=== PATIENT | female | born 1960 | race Caucasian/White ===

== ENCOUNTER 2017-04-04 06:33 | Day surgery (SDC) | payer BC ==
[~2017-04-04 06:33] MED LIST: CEFAZOLIN 1 GM/D5W RTU 1 GM/50 ML RTUPB IV PRN
[2017-04-04] MEDS ORDERED: LIDOCAINE 2% INJ (20 MG/ML) 20 ML MDV ONE (07:09)
[2017-04-04] MEDS ORDERED: POLYMYXIN B SULFATE INJ 500000 UNIT VIAL ONE (07:09)
[2017-04-04] MEDS ORDERED: BUPIVACAINE HCL 0.5 % INJ/PF 30 ML SDV ONE (07:09)
[2017-04-04] MEDS ORDERED: BACITRACIN INJ 50,000 UNIT VIAL ONE (07:10)
[2017-04-04] MEDS ORDERED: SODIUM CHLORIDE IRRIG SOLUTION 0 ML ONE (07:10)
[2017-04-04] MEDS ORDERED: NORMAL SALINE INJ/PF 0.9% 10 ML SDV ONE (07:11)
[2017-04-04] MEDS ORDERED: FENTANYL CITRATE INJ/PF 100 MCG/2 ML AMPUL ONE ×2 (07:15→07:29)
[2017-04-04] MEDS ORDERED: MIDAZOLAM 2 MG/2 ML INJ ONE ×2 (07:15→07:28)
[2017-04-04] MEDS ORDERED: ONDANSETRON HCL INJ/PF 4 MG/2 ML SDV ONE (07:16)
[2017-04-04] MEDS ORDERED: DEXMEDETOMIDINE INJ 80 MCG/20 ML VIAL IV ONE (07:16)
[2017-04-04] MEDS ORDERED: LIDOCAINE 2% INJ-PF (20 MG/ML) 10 ML AMPUL ONE (07:16)
[2017-04-04] MEDS ORDERED: ACETAMINOPHEN 100 ML IV ONE (07:16)
[2017-04-04] MEDS ORDERED: KETAMINE HCL INJ 500 MG/10 ML VIAL ONE (07:16)
[2017-04-04] MEDS ORDERED: KETOROLAC TROMETHAMINE 60 MG/2 ML SDV ONE (07:16)
[2017-04-04] MEDS ORDERED: EPHEDRINE SULFATE INJ 50 MG/1 ML AMPULE ONE (07:17)
[2017-04-04] MEDS ORDERED: PROPOFOL INJ 200 MG/20 ML VIAL IV ONE (07:17)
[2017-04-04] MEDS ORDERED: DEXAMETHASONE SOD PHOS INJ 10 MG/1 ML VIAL ONE (07:17)
[2017-04-04] MEDS ORDERED: BUPIVACAINE INJ/PF LIPOSOME/PF 266 MG/20 ML SDV INJ PRN (09:07)
[2017-04-04] MEDS ORDERED: DEXAMETHASONE SOD PHOSPHATE INJ 4 MG/1 ML VIAL ONE (09:33)
--- NOTE | 2017-04-04 11:18 | SURGICARE DISCHARGE SUMMARY E ---
[facility] Discharge Summary NAME: MEE WILSON AGE: 57Y ADMITTED: 04/04/2017 DISCHARGED: 04/04/2017 SURGICAL PROCEDURES: 1. Harrison bunionectomy with internal screw fixation, right foot. 2. Luiz osteotomy of the second metatarsal with internal screw fixation, right foot. 3. Arthroplasty at the proximal interphalangeal joint, second digit, right foot. POSTOPERATIVE DIAGNOSES: 1. HALLUX ABDUCTOVALGUS, RIGHT FOOT. 2. METATARSALGIA, SECOND METATARSAL, RIGHT FOOT. 3. HAMMERTOE DEFORMITY, SECOND DIGIT, RIGHT FOOT. SURGEON: Sandy Reynoso DPM GRINDER SET UP OPERATOR INTERNAL: Amari Moss DPM HOSPITAL COURSE: The patient was admitted to [facility] [place] with a chief complaint of a painful bunion on her right foot. She was also complaining of the fact that she was having pain in her second toe whenever she wore shoes, and also have some problems with the joint associated with the second toe. The patient had undergone conservative treatments without any cessation of her symptoms, and decided to agree to have these problems surgically corrected. She underwent the above surgical procedures without any complications and was transferred to the recovery room. DISPOSITION: She was discharged with a surgical shoe, an ice pack, and postoperative instructions including no weightbearing on the surgical foot. She was then discharged from [facility], and she was given a follow-up appointment in the doctor's office in 1 week. DICTATING PHYSICIAN: SANDY REYNOSO D.P.M. [id number] PHY#: [id number] ID: [id number] JOB#: [id number] ACCT: [id number] cc:SANDY REYNOSO DPM >
--- NOTE | 2017-04-04 13:21 | RADIOLOGY REPORT (SQ) ---
EXAM DESCRIPTION: FOOT RIGHT 2 VIEWS; NO CHG FLUORO COMPLETED DATE/TIME: 04/04/2017 12:44 pm REASON FOR STUDY: RT FOOT BUNIONECTOMY/2ND OSTECTOMY M20.11 HALLUX VALGUS (ACQUIRED), RIGHT FOOT M7 7.41 METATARSALGIA, RIGHT FOOT COMPARISON: None. FLUOROSCOPY TIME: 14 seconds 2 images saved to PACS. TECHNIQUE: Intra-operative images acquired during surgical procedure to evaluate progress. NUMBER OF IMAGES: 2 LIMITATIONS: None. FINDINGS: Orthopedic screw overlies distal 1st metatarsal status post osteotomy. Orthopedic screw o verlies head of 2nd metatarsal. IMPRESSION: IMAGE(S) OBTAINED DURING PROCEDURE. COMMENT: Quality ID [id number]: Final reports for procedures using fluoroscopy that document radiation exp osure indices, or exposure time and number of fluorographic images (if radiation exposure indices are not available) Please consult full operative report of the attending physician for description of the procedure. TECHNICAL DOCUMENTATION: JOB ID: [id number] [employer]- All Rights Reserved
--- NOTE | 2017-04-05 14:40 | SURGICARE OPERATIVE REPORT E ---
[facility] NAME: MEE WILSON AGE: 57Y DATE OF SURGERY: 04/04/2017 ROOM: PREOPERATIVE DIAGNOSES: 1. Hallux abductovalgus, right foot. 2. Metatarsalgia second metatarsal, right foot. 3. Hammertoe deformity second digit, right foot. POSTOPERATIVE DIAGNOSES: 1. Hallux abductovalgus, right foot. 2. Metatarsalgia second metatarsal, right foot. 3. Hammertoe deformity second digit, right foot. SURGICAL PROCEDURES: 1. Harrison bunionectomy with internal screw fixation, right foot. 2. Luiz osteotomy with internal screw fixation second metatarsal, right foot. 3. Arthroplasty at the proximal interphalangeal joint second digit, right foot. SURGEON: SANDY GUTIERREZ DPM GLOBAL COORDINATOR: MARI RUST DPM DESCRIPTION OF PROCEDURE: Following induction IV regional local anesthesia, the right foot and leg were prepped and draped in the usual sterile manner. A pneumatic tourniquet was placed around the right ankle and inflated to 150 mmHg after exsanguination of limb via Esmarch bandage. The following surgical procedures were then performed. 1. Harrison bunionectomy with internal screw fixation, right foot: Attention was directed to the dorsal aspect of the first metatarsophalangeal joint of the right foot where an approximately 4 cm dorsal linear incision was made. The incision was deep and via sharp dissection. All bleeders were clamped and bovied as necessary for the purposes of hemostasis. The capsular incision was made in the same manner as the original skin incision and made medial to the extensor hallucis longus tendon. The capsule was reflected medial and laterally from the bone. Attention was directed to the first interspace where utilizing blunt dissection. The transverse adductor tendon was identified and it was sharply incised. Attention was directed to the hypertrophied medial aspect of the first metatarsal head where utilizing a Gazemetrix sagittal saw, the hypertrophied head of the medial aspect of the first metatarsal was osteomized parallel to the long axis of the bone and removed in toto from the wound. An Harrison type osteotomy was then performed with the apex being distal. It was done at the medial aspect of the first metatarsal head. The apex was distal. The wounds were approximated 60 degrees plantar and dorsal. With through and through cuts, the capsular fragment was then distracted, shifted approximately 6 mm laterally on the metatarsal, and tilted and impacted on the bone. The osteotomy was temporarily fixated utilizing a 0.45 guidewire. A reamer measure was then threaded down the guidewire and a hole was reamed to accept the head of the screw and it was noted that an 18 mm 3.0 cannulated screw would be needed. A 2.0 cannulated drill bit was then threaded down the guidewire and the distal aspect of the osteotomy was then drilled. The 18 mm 3.0 cannulated screw was then threaded down the guidewire and tightened down until the osteotomy was stably fixated. X-ray was taken. It was noted that the screw was in good position, the osteotomy closed, and that the first metatarsophalangeal joint was found in a more anatomic correct position. The guidewire was then removed. The redundant bone on the medial aspect of the first metatarsal head was then osteotomized parallel to the long axis of the bone utilizing a Gazemetrix sagittal saw. Medial aspect of the first metatarsal head was then rasped smooth utilizing a Gazemetrix crosscut rasp. The area was then flushed with copious amounts of a saline solution. Bone wax was then applied to the medial aspect of the first metatarsal head. The capsule was then coapted and maintained utilizing simple interrupted sutures of 3-0 Vicryl. The extensor hallucis longus tendon was then lengthened via a Z-plasty lengthening and was sutured utilizing a running, locking suture of 3-0 FiberWire. The tendon was then tacked medially utilizing simple interrupted sutures of 4-0 Vicryl. The subcutaneous tissue was then closed utilizing simple interrupted sutures of 4-0 Vicryl. The incision was then injected with Exparel. The skin was then coapted and maintained utilizing horizontal mattress sutures of 5-0 nylon. 2. Luiz osteotomy of the second metatarsal with internal screw fixation: Attention was directed to the dorsal aspect of the second metatarsophalangeal joint where approximately a 2 cm curvilinear incision was made over the second metatarsophalangeal joint. The incision was deep and via sharp dissection. All bleeders were clamped and bovied as necessary for the purposes of hemostasis. A dorsal linear capsule incision was made medial to the extensor digitorum longus tendon. The capsule was then freed from the soft tissue attachments dorsally. The Luiz osteotomy was then performed at the second metatarsal head. The osteotomy was angled from distal dorsal to plantar proximal. This then allowed the metatarsal head to shift plantarly and proximally. The site was then fixated utilizing a 12 mm QuickFix screw. The redundant bone on the dorsal aspect of the second metatarsal was removed utilizing a rongeur. The area was then flushed with copious amounts of saline solution. An x-ray was taken. It was noted that the osteotomy of the second metatarsal was closed and that it's length was more in line with the third metatarsal. The osteotomy was stably fixated. The capsule was then coapted and maintained utilizing simple interrupted sutures subcutaneous. The extensor digitorum longus was then lengthened via a Z-plasty lengthening and sutured with 3-0 FiberWire. The subcutaneous tissue was then closed utilizing simple interrupted sutures of 4-0 Vicryl and the skin was coapted and maintained utilizing horizontal mattress sutures of 5-0 nylon. 3. Arthroplasty at the proximal interphalangeal joint second digit, right foot: Attention was directed to the dorsal aspect of the second digit right foot where an approximately 1.5 cm. dorsolinear incision was made. The incision was deep and via sharp dissection. All bleeders were clamped and bovied as necessary for the purposes of hemostasis. The extensor digitorum longus tendon was then incised transversely and reflected proximally and distally from the bone. The hypertrophied head of the proximal phalanx was osteotomized perpendicular to the long axis of the bone utilizing a Debord sagittal saw. The plantar plate was then sharply incised and removed. The flexor hallucis longus tendon was isolated, brought up plantarly, and cut as far distal as possible. The digitorum longus tendon was then split longitudinally and brought up in the medial and lateral aspects of the second digit. The tendon was then coapted and maintained at dorsal aspect of the digit of the proximal phalanx utilizing a simple interrupted suture of 3-0 FiberWire. The distal aspect of the extensor digitorum longus tendon was then sutured to the flexor digitorum longus tendon plantarly utilizing simple interrupted suture of 3-0 Vicryl. The extensor digitorum longus tendon and the distal and proximal aspect were then sutured back utilizing simple interrupted sutures of 3-0 Vicryl. The flexor digitorum longus tendon was then sutured to the dorsal aspect of the extensor digitorum longus tendon utilizing simple interrupted sutures of 3-0 FiberWire. Attention was directed to the proximal aspect of the proximal phalanx where utilizing sharp dissection the extensor kim was incised. The skin was then coapted and maintained utilizing horizontal mattress sutures of 5-0 nylon. It should be noted that the second metatarsal incision was also injected with Exparel before the skin was sutured. The foot was then cleansed utilizing alcohol foam. A dry sterile dressing was then applied consisting of Isaac silk, 4 x 4s, Conform, Kerlix, and Coban. The pneumatic tourniquet was released. It was noted that all digits were warm and viable and patient was transferred to the recovery room. DICTATING PHYSICIAN: SANDY GUTIERREZ D.P.M. [id number] PHY#: [id number] ID: [id number] JOB#: [id number] ACCT: [id number] cc:SANDY GUTIERREZ DPM > MTDD
== END 2017-04-04 11:18 | disposition home or self-care (01) ==
LOC: SC 06:33
PROVIDERS: ATTEND Podiatrist Foot Surgery
PROC: 0QSN04Z Reposition Right Metatarsal with Internal Fixation Device, Open Approach (ICD-10-PCS; 2017-04-04)
PROC: 0SRP0JZ Replacement of Right Toe Phalangeal Joint with Synthetic Substitute, Open Approach (ICD-10-PCS; 2017-04-04)
PROC: 0QBN0ZZ Excision of Right Metatarsal, Open Approach (ICD-10-PCS; principal; 2017-04-04 07:30)
DX: M20.11 Hallux valgus (acquired), right foot (principal); M77.41 Metatarsalgia, right foot; J45.909 Unspecified asthma, uncomplicated; M19.90 Unspecified osteoarthritis, unspecified site; G40.909 Epilepsy, unspecified, not intractable, without status epilepticus; G47.30 Sleep apnea, unspecified; Z87.891 Personal history of nicotine dependence
CPT/HCPCS: 73620; 28296; 28308; 28285; C1713 ×2; C1769; J2250; J3490 ×4; J0690; J1100 ×2; J1885; J3010; J2405; J2704; J0131; C9290; 01480

== ENCOUNTER 2017-11-15 20:07 | Observation (INO) | payer BC ==
[2017-11-15] MEDS ORDERED: ASPIRIN 81 MG TABLET, CHEWABLE PO ONE (20:18)
--- NOTE | 2017-11-15 20:21 | ER Document Report ---
ED General - General Stated Complaint: CHEST PAIN Time Seen by Provider: 11/15/17 20:11 Mode of Arrival: Ambulatory Information source: Patient Notes: This is a 57-year-old female with a history of childhood teeth mild seizures, history of GERD, who was usual state of health until this evening when she was walking into the kitchen and had sudden onset of palpitations. The palpitations lasted 15 minutes before she called EMS. EMS found the patient in SVT with rates approximately 220. She was given 6 mg of adenosine and converted to sinus rhythm. Patient states her symptoms are much improved. Total symptoms lasted 35 minutes. Medicines: None Allergies: Bacitracin and Neurontin. Patient denies any significant alcohol, occasionally smokes cigarettes. TRAVEL OUTSIDE OF THE [place] IN LAST 30 DAYS: No - HPI Onset: Just prior to arrival Onset/Duration: Sudden Quality of pain: Dull Severity: Mild Pain Level: 1 Associated symptoms: Shortness of breath. denies: Fever Exacerbated by: Denies Relieved by: Denies Similar symptoms previously: No Recently seen / treated by doctor: No - Related Data Allergies/Adverse Reactions: bacitracin Allergy (Verified 04/04/17 07:03) Blisters gabapentin [From Neurontin] Allergy (Verified 04/04/17 07:03) Home Medications: Current Home Medications No Home Medications 11/16/17 [History] Past Medical History - General Information source: Patient - Social History Smoking Status: Current Every Day Smoker Cigarette use (# per day): Yes - "Occasional: Chew tobacco use (# tins/day): No Frequency of alcohol use: Occasional Drug Abuse: None Lives with: Family Family History: Reviewed & Not Pertinent - Past Medical History Cardiac Medical History: Denies: Hx Heart Attack, Hx Hypertension Pulmonary Medical History: Denies: Hx Asthma Neurological Medical History: Reports: Hx Seizures - PETIT MAL/BLACK OUT, MEDS 6 -15YRS OLD NO MEDS NOW. Denies: Hx Cerebrovascular Accident GI Medical History: Reports: Hx Hiatal Hernia. Denies: Hx Hepatitis, Hx Ulcer Infectious Medical History: Denies: Hx Hepatitis Past Surgical History: Reports: Hx Appendectomy, Hx Gynecologic Surgery - partial ovary removal, Hx Hysterectomy. Denies: Hx Mastectomy, Hx Open Heart Surgery, Hx Pacemaker Review of Systems - Review of Systems Constitutional: denies: Chills, Fever EENT: No symptoms reported Cardiovascular: Palpitations Respiratory: No symptoms reported Gastrointestinal: No symptoms reported Genitourinary: No symptoms reported Female Genitourinary: No symptoms reported Musculoskeletal: No symptoms reported Skin: No symptoms reported Hematologic/Lymphatic: No symptoms reported Neurological/Psychological: No symptoms reported Physical Exam - Vital signs Vitals: Temp Pulse Resp BP Pulse Ox 98.2 F 116 H 18 107/90 H 98 11/15/17 20:11 11/15/17 20:11 11/15/17 20:11 11/15/17 20:11 11/15/17 20:11 Notes: Physical exam: GENERAL: 57-year-old female, alert and oriented 3, no acute distress HEAD: Atraumatic, normocephalic. EYES: Pupils equal round and reactive to light, extraocular movements intact, sclera anicteric, conjunctiva are normal. ENT: TMs normal, nares patent, oropharynx clear without exudates. Moist mucous membranes. NECK: Normal range of motion, supple without obvious mass or JVD. LUNGS: Breath sounds clear to auscultation bilaterally and equal. No wheezes rales or rhonchi. HEART: Regular rate and rhythm without murmurs, rubs or gallops. ABDOMEN: Soft, normoactive bowel sounds. No tenderness to palpation. No guarding, no rebound. No masses appreciated. EXTREMITIES: Normal range of motion, no pitting or edema. No clubbing or cyanosis. NEUROLOGICAL: Cranial nerves II through XII grossly intact. Normal speech, moving all extremities. PSYCH: Normal mood, normal affect. SKIN: Warm, Dry, normal turgor, no rashes or lesions noted. Course - Re-evaluation Re-evalutation: 11/16/17 03:13 I discussed case with Dr. beck who recommends continued observation. He also recommends Cardizem 30 mg every 8 hours. - Vital Signs Vital signs: Temp Pulse Resp BP Pulse Ox 98.2 F 116 H 22 H 114/76 97 11/15/17 20:11 11/15/17 20:55 11/16/17 04:01 11/16/17 04:01 11/16/17 04:01 - Laboratory Result Diagrams: 11/15/17 20:42 11/15/17 20:42 Laboratory results interpreted by me: 11/15/17 11/15/17 20:42 20:42 WBC 10.8 H Chloride 109 H Glucose 112 H Calcium 10.3 H Creatine Kinase 193 H - Diagnostic Test Radiology reviewed: Image reviewed, Reports reviewed - Chest x-ray shows no infiltrates or effusions - EKG Interpretation by Me Rate: Normal Rhythm: NSR - EKG shows normal sinus rhythm with an inverted T in lead III. Critical Care Note - Critical Care Note Total time excluding time spent on procedures (mins): 60 Discharge - Discharge Clinical Impression: SVT Condition: Stable Disposition: ADMITTED OBSERVATION Admitting Provider: Hospitalist - Dr. Brewster Unit Admitted: DAVIAN
--- NOTE | 2017-11-15 20:53 | RADIOLOGY REPORT (SQ) ---
EXAM DESCRIPTION: CHEST SINGLE VIEW COMPLETED DATE/TIME: 11/15/2017 8:44 pm REASON FOR STUDY: palpitations COMPARISON: 06/25/2008. EXAM PARAMETERS: NUMBER OF VIEWS: One view. TECHNIQUE: Single frontal radiographic view of the chest acquired. RADIATION DOSE: NA LIMITATIONS: None. FINDINGS: LUNGS AND PLEURA: No opacities, masses or pneumothorax. No pleural effusion. MEDIASTINUM AND HILAR STRUCTURES: No masses. Contour normal. HEART AND VASCULAR STRUCTURES: Heart normal in size. Normal vasculature. BONES: No acute findings. HARDWARE: None in the chest. OTHER: No other significant finding. IMPRESSION: NO ACUTE RADIOGRAPHIC FINDING IN THE CHEST. TECHNICAL DOCUMENTATION: JOB ID: [id number] [employer] All Rights Reserved
[2017-11-15 21:00] LABS: ABSOLUTE BASOPHILS # (AUTO) 0.1 10^3/uL (0.0-0.2); ABSOLUTE EOSINOPHILS # (AUTO) 0.3 10^3/uL (0.0-0.6); ABSOLUTE LYMPHOCYTES (AUTO) 2.9 10^3/uL (0.5-4.7); ABSOLUTE MONOCYTES (AUTO) 0.7 10^3/uL (0.1-1.4); ABSOLUTE NEUT (AUTO) 6.8 10^3/uL (1.7-8.2); BASOPHILS % (AUTO) 0.9 % (0-2); EOSINOPHILS % (AUTO) 3.1 % (0-6); HEMOGLOBIN 14.9 g/dL (12.0-15.5); LYMPHOCYTES % (AUTO) 26.4 % (13-45); MEAN CORPUSCULAR HEMOGLOBIN 29.3 pg (27.0-33.4); MEAN CORPUSCULAR HGB CONC 33.9 g/dL (32.0-36.0); MEAN CORPUSCULAR VOLUME 87 fl (80-97); MONOCYTES % (AUTO) 6.5 % (3-13); PLATELET COUNT 321 10^3/uL (150-450); RED BLOOD COUNT 5.09 10^6/uL (3.72-5.28); RED CELL DISTRIBUTION WIDTH 13.1 % (11.5-14.0); SEGMENTED NEUTROPHILS % (AUTO) 63.1 % (42-78); TOTAL CELLS COUNTED % (AUTO) 100 %; WHITE BLOOD COUNT 10.8 10^3/uL (4.0-10.5)
[2017-11-15 21:25] LABS: ALANINE AMINOTRANSFERASE 36 U/L (9-52); ALBUMIN 4.4 g/dL (3.5-5.0); ALKALINE PHOSPHATASE 80 U/L (38-126); ANION GAP 12 (5-19); ASPARTATE AMINO TRANSFERASE 23 U/L (14-36); BILIRUBIN,DIRECT 0.2 mg/dL (0.0-0.4); BILIRUBIN,TOTAL 0.4 mg/dL (0.2-1.3); BLOOD UREA NITROGEN 12 mg/dL (7-20); CALCIUM 10.3 mg/dL (8.4-10.2); CARBON DIOXIDE 23 mmol/L (22-30); CHLORIDE 109 mmol/L (98-107); CREATINE KINASE 193 U/L (30-135); GLUCOSE 112 mg/dL (75-110); POTASSIUM 4.4 mmol/L (3.6-5.0); TOTAL PROTEIN 6.9 g/dL (6.3-8.2)
[2017-11-15 21:35] LABS: CREATINE KINASE MB 0.79 ng/mL (<4.55)
[2017-11-15 21:38] LABS: TROPONIN I 0.038 ng/mL
[2017-11-15 21:39] LABS: FREE T4 (FREE THYROXINE) 1.03 ng/dL (0.78-2.19)
[2017-11-15 21:53] LABS: THYROID STIMULATING HORMONE 1.31 uIU/mL (0.47-4.68)
[2017-11-16] MEDS ORDERED: METOPROLOL TARTRATE PF/INJ 5 MG/5 ML SDV IV PRN (03:07)
[2017-11-16] MEDS ORDERED: MAG HYDROX/AL HYDROX/SIMETH SUSP 30 ML UDCUP PO PRN (03:07)
[2017-11-16] MEDS ORDERED: DILTIAZEM HCL 30 MG TABLET PO SCH ×2 (03:15→06:00)
[2017-11-16] MEDS ORDERED: ATORVASTATIN CALCIUM 80 MG TABLET PO ONE (03:30)
[2017-11-16] MEDS ORDERED: DILTIAZEM HCL 30 MG TABLET PO ONE (03:30)
--- NOTE | 2017-11-16 04:21 | PDOC H&P ---
History of Present Illness Admission Date/PCP: MENDEZ HUTCIHNSON MD Patient complains of: Palpitations and chest pain History of Present Illness: MEE WILSON is a 57 year old female with a past medical history of occasional tobacco, obesity, GERD, obstructive sleep apnea and Kristel mall seizure. Patient presents with 30 minutes of palpitations and 4 out of 5 chest tightness with radiation to the left shoulder, neck and jaw. EMS arrived with the patient in SVT 220 receiving 6 mg of adenosine and converting to sinus rhythm. Her symptoms resolved after a total of 35 minutes and is brought to the emergency room for evaluation where she is found to have indeterminate troponin and referred to the hospitalist for observation. She denies previous episode she denies any medications, excessive caffeine, alcohol or diet supplements. Past Medical History Cardiac Medical History: Denies: Myocardial Infarction, Hypertension Pulmonary Medical History: Reports: Sleep Apnea Denies: Asthma Neurological Medical History: Reports: Seizures - PETIT MAL/BLACK OUT, MEDS 6- 15YRS OLD NO MEDS NOW GI Medical History: Reports: Hiatal Hernia Denies: Hepatitis Hematology: Reports: Anemia - TEENAGE YEARS,IRON Denies: Sickle Cell Disease Past Surgical History Past Surgical History: Reports: Appendectomy, Hysterectomy Denies: Amputation, Mastectomy, Pacemaker Social History Information Source: Patient, [facility] Records Lives with: Family Smoking Status: Current Some Day Smoker Frequency of Alcohol Use: None Drugs: None Family History Family History: CAD Parental Family History Reviewed: Yes Children Family History Reviewed: Yes Sibling(s) Family History Reviewed.: Yes Medication/Allergy Home Medications: No Home Medications 11/16/17 Allergies/Adverse Reactions: bacitracin Allergy (Verified 04/04/17 07:03) Blisters gabapentin [From Neurontin] Allergy (Verified 04/04/17 07:03) Review of Systems Constitutional: ABSENT: chills, fever(s), headache(s), weight gain, weight loss Eyes: ABSENT: visual disturbances Ears: ABSENT: hearing changes Cardiovascular: ABSENT: chest pain, dyspnea on exertion, edema, orthropnea, palpitations Respiratory: ABSENT: cough, hemoptysis Gastrointestinal: ABSENT: abdominal pain, constipation, diarrhea, hematemesis, hematochezia, nausea, vomiting Genitourinary: ABSENT: dysuria, hematuria Musculoskeletal: ABSENT: joint swelling Integumentary: ABSENT: rash, wounds Neurological: ABSENT: abnormal gait, abnormal speech, confusion, dizziness, focal weakness, syncope Psychiatric: ABSENT: anxiety, depression, homidical ideation, suicidal ideation Endocrine: ABSENT: cold intolerance, heat intolerance, polydipsia, polyuria Hematologic/Lymphatic: ABSENT: easy bleeding, easy bruising Physical Exam Vital Signs: Temp Pulse Resp BP Pulse Ox 98.2 F 116 H 14 107/74 96 11/15/17 20:11 11/15/17 20:55 11/16/17 02:01 11/16/17 02:01 11/16/17 02:01 Intake & Output 11/14/17 11/15/17 11/16/17 11:59 11:59 11:59 Weight 83.915 kg General appearance: PRESENT: no acute distress, well-developed, well-nourished Head exam: PRESENT: atraumatic, normocephalic Eye exam: PRESENT: conjunctiva pink, EOMI, PERRLA. ABSENT: scleral icterus Ear exam: PRESENT: normal external ear exam Mouth exam: PRESENT: moist, tongue midline Neck exam: ABSENT: carotid bruit, JVD, lymphadenopathy, thyromegaly Respiratory exam: PRESENT: clear to auscultation marely. ABSENT: rales, rhonchi, wheezes Cardiovascular exam: PRESENT: RRR. ABSENT: diastolic murmur, rubs, systolic murmur Pulses: PRESENT: normal dorsalis pedis pul Vascular exam: PRESENT: normal capillary refill GI/Abdominal exam: PRESENT: normal bowel sounds, soft. ABSENT: distended, guarding, mass, organolmegaly, rebound, tenderness Rectal exam: PRESENT: deferred Extremities exam: PRESENT: full ROM. ABSENT: calf tenderness, clubbing, pedal edema Neurological exam: PRESENT: alert, awake, oriented to person, oriented to place , oriented to time, oriented to situation, CN II-XII grossly intact. ABSENT: motor sensory deficit Psychiatric exam: PRESENT: appropriate affect, normal mood. ABSENT: homicidal ideation, suicidal ideation Skin exam: PRESENT: dry, intact, warm. ABSENT: cyanosis, rash Results Laboratory Results: 11/15/17 20:42 11/15/17 20:42 11/15/17 11/15/17 11/15/17 20:42 20:42 20:42 WBC 10.8 H RBC 5.09 Hgb 14.9 Hct 44.0 MCV 87 MCH 29.3 MCHC 33.9 RDW 13.1 Plt Count 321 Seg Neutrophils % 63.1 Lymphocytes % 26.4 Monocytes % 6.5 Eosinophils % 3.1 Basophils % 0.9 Absolute Neutrophils 6.8 Absolute Lymphocytes 2.9 Absolute Monocytes 0.7 Absolute Eosinophils 0.3 Absolute Basophils 0.1 Sodium 144.0 Potassium 4.4 Chloride 109 H Carbon Dioxide 23 Anion Gap 12 BUN 12 Creatinine 0.76 Est GFR ( Amer) > 60 Est GFR (Non-Af Amer) > 60 Glucose 112 H Calcium 10.3 H Magnesium Total Bilirubin 0.4 AST 23 ALT 36 Alkaline Phosphatase 80 Total Protein 6.9 Albumin 4.4 TSH 1.31 Free T4 1.03 11/16/17 02:05 WBC RBC Hgb Hct MCV MCH MCHC RDW Plt Count Seg Neutrophils % Lymphocytes % Monocytes % Eosinophils % Basophils % Absolute Neutrophils Absolute Lymphocytes Absolute Monocytes Absolute Eosinophils Absolute Basophils Sodium Potassium Chloride Carbon Dioxide Anion Gap BUN Creatinine Est GFR ( Amer) Est GFR (Non-Af Amer) Glucose Calcium Magnesium 2.1 Total Bilirubin AST ALT Alkaline Phosphatase Total Protein Albumin TSH Free T4 11/15/17 11/15/17 11/16/17 20:42 20:42 00:05 Creatine Kinase 193 H CK-MB (CK-2) 0.79 Troponin I 0.038 0.089 11/16/17 02:05 Creatine Kinase CK-MB (CK-2) Troponin I 0.084 Impressions: Chest X-Ray 11/15/17 20:18 IMPRESSION: NO ACUTE RADIOGRAPHIC FINDING IN THE CHEST. Assessment & Plan - Diagnosis (1) SVT (supraventricular tachycardia) Is this a current diagnosis for this admission?: Yes Plan: Unclear cause complicated by sleep apnea, check TSH, consider urine drug screen. Should be observed on a monitored floor with Cardizem 60 mg p.o. every 8 (2) Chest pain Is this a current diagnosis for this admission?: Yes Plan: SVT induced chest pain. We will evaluate for acute coronary syndrome, risk factors and consider inpatient stress testing. (3) Sleep apnea Is this a current diagnosis for this admission?: Yes Plan: CPAP (4) GERD (gastroesophageal reflux disease) Is this a current diagnosis for this admission?: Yes Plan: Proton pump inhibitor as needed - Time Time Spent: 30 to 50 Minutes
[2017-11-16 08:51] LABS: CHOLESTEROL 200.48 mg/dL (0-200); TRIGLYCERIDES 140 mg/dL (<150)
[2017-11-16 09:14] LABS: DIRECT LDL 134 mg/dL (<100)
[2017-11-16 09:15] LABS: CREATINE KINASE MB 1.02 ng/mL (<4.55); TROPONIN I 0.045 ng/mL
--- NOTE | 2017-11-16 09:20 | EKG REPORT ---
SEVERITY:- ABNORMAL ECG - SINUS TACHYCARDIA RIGHT AXIS DEVIATION BORDERLINE R WAVE PROGRESSION, ANTERIOR LEADS BORDERLINE T ABNORMALITIES, INFERIOR LEADS : Confirmed by: Aaron Flores 16-Nov-2017 09:19:21
--- NOTE | 2017-11-16 09:20 | EKG REPORT ---
SEVERITY:- NORMAL ECG - SINUS RHYTHM : Confirmed by: Aaron Flores 16-Nov-2017 09:19:00
[2017-11-16] MEDS ORDERED: DOCUSATE SODIUM 100 MG CAPSULE PO SCH (10:00)
[2017-11-16 12:29] VITALS: BP 120/70
--- NOTE | 2017-11-16 15:10 | PDOC DISCHARGE SUMMARY ---
General - Admit/Disc Date/PCP Admission Date/Primary Care Provider: 11/16/17 03:15 MENDEZ HUTCHINSON MD Discharge Date: 11/16/17 - Discharge Diagnosis (1) SVT (supraventricular tachycardia) Is this a current diagnosis for this admission?: Yes (2) Chest pain Is this a current diagnosis for this admission?: Yes (3) GERD (gastroesophageal reflux disease) Is this a current diagnosis for this admission?: Yes (4) Sleep apnea Is this a current diagnosis for this admission?: Yes - Additional Information Discharge Diet: Cardiac Discharge Activity: Activity As Tolerated, Balance Activity w/Rest Prescriptions: Aspirin [Children's Aspirin] 81 mg PO DAILY #90 tab.chew Atorvastatin Calcium [Lipitor 80 mg Tablet] 80 mg PO QHS #30 tablet Diltiazem HCl [Cardizem 30 mg Tablet] 30 mg PO Q8 #90 tablet Home Medications: Aspirin [Children's Aspirin] 81 mg PO DAILY #90 tab.chew 11/16/17 Atorvastatin Calcium [Lipitor 80 mg Tablet] 80 mg PO QHS #30 tablet 11/16/17 Diltiazem HCl [Cardizem 30 mg Tablet] 30 mg PO Q8 #90 tablet 11/16/17 History of Present Illness History of Present Illness: Per H&P by Dr. Brewster: MEE WILSON is a 57 year old female with a past medical history of occasional tobacco, obesity, GERD, obstructive sleep apnea and [place] small seizure. Patient presents with 30 minutes of palpitations and 4 out of 5 chest tightness with radiation to the left shoulder, neck and jaw. EMS arrived with the patient in SVT to 20 receiving 6 mg of adenosine and converting to sinus rhythm. Her symptoms have resolved after a total of 35 minutes and is brought to the emergency room for evaluation where she is found to have indeterminate troponin and referred to the hospitalist for observation. She denies previous episodes she denies any medications, excessive caffeine, alcohol or diet supplements. Hospital Course Hospital Course: The patient was admitted to observational status for chest pain workup following SVT that corrected normal sinus rhythm following adenosine per EMS. She was started on Cardizem 30 mg every 8 hours. Her TSH was evaluated to be 1.31. Serial troponins were obtained and found to be indeterminate and trending downward. Cardiology was consulted and determined that the patient was stable for discharge with outpatient follow up and stress testing. At time of discharge, the patient is in stable condition, normal sinus rhythm, and pain free. She is advised to avoid alcohol, tobacco, caffeine, and over-the -counter stimulants. She is recommended to begin taking a daily aspirin. She is out of prescriptions for Lipitor and Cardizem. Patient is to follow-up with her primary care provider within 1-[address] Sanchez's office to schedule stress testing. Physical Exam Vital Signs: Temp Pulse Resp BP Pulse Ox 98.1 F 70 18 120/70 98 11/16/17 12:27 11/16/17 12:27 11/16/17 12:27 11/16/17 12:27 11/16/17 12:27 General appearance: PRESENT: no acute distress, well-developed, well-nourished Head exam: PRESENT: atraumatic, normocephalic Eye exam: PRESENT: conjunctiva pink, EOMI, PERRLA. ABSENT: scleral icterus Ear exam: PRESENT: normal external ear exam Mouth exam: PRESENT: moist, tongue midline Neck exam: ABSENT: carotid bruit, JVD, lymphadenopathy, thyromegaly Respiratory exam: PRESENT: clear to auscultation marely, symmetrical, unlabored. ABSENT: rales, rhonchi, wheezes Cardiovascular exam: PRESENT: RRR, +S1, +S2. ABSENT: diastolic murmur, rubs, systolic murmur Pulses: PRESENT: normal dorsalis pedis pul Vascular exam: PRESENT: normal capillary refill GI/Abdominal exam: PRESENT: normal bowel sounds, soft. ABSENT: distended, guarding, mass, organolmegaly, rebound, tenderness Rectal exam: PRESENT: deferred Extremities exam: PRESENT: full ROM. ABSENT: calf tenderness, clubbing, pedal edema Neurological exam: PRESENT: alert, awake, oriented to person, oriented to place , oriented to time, oriented to situation, CN II-XII grossly intact. ABSENT: motor sensory deficit Psychiatric exam: PRESENT: appropriate affect, normal mood. ABSENT: homicidal ideation, suicidal ideation Skin exam: PRESENT: dry, intact, warm. ABSENT: cyanosis, rash Results Laboratory Results: 11/16/17 08:23 Triglycerides 140 Cholesterol 200.48 H LDL Cholesterol Direct 134 H VLDL Cholesterol 28.0 HDL Cholesterol 44 11/16/17 11/16/17 08:23 08:23 Creatine Kinase 127 CK-MB (CK-2) 1.02 Troponin I 0.045 Impressions: Chest X-Ray 11/15/17 20:18 IMPRESSION: NO ACUTE RADIOGRAPHIC FINDING IN THE CHEST. Qualifiers [place]INT BEING DISCHARGED WITH ANY OF THE FOLLOWING DIAGNOSIS?: No
[2017-11-16] MEDS ORDERED: ATORVASTATIN CALCIUM 80 MG TABLET PO SCH (22:00)
== END 2017-11-16 12:27 | disposition home or self-care (01) ==
LOC: ER 20:07 → EH 11-16 03:15
PROVIDERS: ADMIT Internal Medicine; ATTEND Internal Medicine
DX: I47.1 Supraventricular tachycardia (principal); R07.89 Other chest pain; K21.9 Gastro-esophageal reflux disease without esophagitis; G47.30 Sleep apnea, unspecified; F17.210 Nicotine dependence, cigarettes, uncomplicated; Z79.82 Long term (current) use of aspirin; Z79.899 Other long term (current) drug therapy; Z82.49 Family history of ischemic heart disease and other diseases of the circulatory system; Z90.49 Acquired absence of other specified parts of digestive tract
CPT/HCPCS: 93005 ×2; 99291; 36415 ×2; 84439; 82553 ×2; 82550 ×2; 83735; 84443; 85025; 80053; 84484 ×2; 80061; 71045; 93010 ×2; J3490

== ENCOUNTER 2018-11-04 16:28 | Emergency (ER) | payer BC ==
[2018-11-04] MEDS ORDERED: KETOROLAC TROMETHAMINE 60 MG/2 ML SDV IM ONE (17:05)
[2018-11-04] MEDS ORDERED: FENTANYL CITRATE INJ/PF 100 MCG/2 ML AMPUL IM ONE (17:05)
--- NOTE | 2018-11-04 17:05 | ER Document Report ---
ED Medical Screen (RME) - General Chief Complaint: Flank Pain Stated Complaint: FLANK PAIN Time Seen by Provider: 11/04/18 17:00 TRAVEL OUTSIDE OF THE [place] IN LAST 30 DAYS: No - HPI Patient complains to provider of: Left-sided flank pain Onset: Other - This is a 58-year-old female presents for evaluation of pain in the left side. She notes that she has had a history of a single nephrolithiasis in the past which did not require any assistance in passing. She denies any fevers or chills. Denies any history of trauma to the abdomen or pelvis no AAA history either. Nothing is made it better nothing made it worse. She is not take anything to try and help with it. - Related Data Allergies/Adverse Reactions: bacitracin Allergy (Verified 11/04/18 16:29) Blisters gabapentin [From Neurontin] Allergy (Verified 11/04/18 16:29) Past Medical History - General Information source: Patient - Social History Cigarette use (# per day): No Family history: None - Past Medical History Cardiac Medical History: Denies: Hx Heart Attack, Hx Hypertension Pulmonary Medical History: Reports: Hx Sleep Apnea Denies: Hx Asthma Neurological Medical History: Reports: Hx Seizures - PETIT MAL/BLACK OUT, MEDS 5-14YRS OLD NO MEDS NOW. Denies: Hx Cerebrovascular Accident Renal/ Medical History: Denies: Hx Peritoneal Dialysis GI Medical History: Reports: Hx Hiatal Hernia. Denies: Hx Hepatitis, Hx Ulcer Infectious Medical History: Denies: Hx Hepatitis Past Surgical History: Reports: Hx Appendectomy, Hx Section - x2, Hx Gynecologic Surgery - partial ovary removal, Hx Hysterectomy. Denies: Hx Mastectomy, Hx Open Heart Surgery, Hx Pacemaker Review of Systems - Review of Systems -: Yes All other systems reviewed and negative Physical Exam - Vital signs Vitals: Temp Pulse Resp BP Pulse Ox 97.9 F 78 16 141/85 H 97 11/04/18 16:34 11/04/18 16:34 11/04/18 16:34 11/04/18 16:34 11/04/18 16:34 Interpretation: Normal - General General appearance: Appears well, Alert - HEENT Head: Normocephalic, Atraumatic Eyes: Normal Pupils: PERRL - Respiratory Respiratory status: No respiratory distress Chest status: Nontender Breath sounds: Normal Chest palpation: Normal - Cardiovascular Rhythm: Regular Heart sounds: Normal auscultation Murmur: No - Abdominal Inspection: Normal Distension: No distension Bowel sounds: Normal Tenderness: Nontender Organomegaly: No organomegaly - Back Back: Normal, CVA tenderness - Tenderness to percussion along the left CVA - Extremities General upper extremity: Normal inspection, Nontender, Normal color, Normal ROM, Normal temperature General lower extremity: Normal inspection, Nontender, Normal color, Normal ROM, Normal temperature, Normal weight bearing. No: Layla's sign - Neurological Neuro grossly intact: Yes Cognition: Normal Orientation: AAOx4 [place] Coma Scale Eye Opening: Spontaneous [place] Coma Scale Verbal: Oriented [place] Coma Scale Motor: Obeys Commands [place] Coma Scale Total: 15 Speech: Normal Motor strength normal: LUE, RUE, LLE, RLE Sensory: Normal - Psychological Associated symptoms: Normal affect, Normal mood - Skin Skin Temperature: Warm Skin Moisture: Dry Skin Color: Normal Course - Re-evaluation Re-evalutation: 11/04/18 17:04 58-year-old female with a history of nephrolithiasis in the past who presents for evaluation of pain in the left side similar to previous kidney stone. We will obtain urinalysis, chemistry, and a blood count. 11/04/18 20:11 Urinalysis demonstrates hematuria, chemistry demonstrates a normal creatinine. Do not believe this patient needs further investigation at this time likely she has a nephrolithiasis. Will initiate treatment with an expulsive, will give narcotic pain control. Do not believe she requires an antibiotic at this time. She is been given return precautions related specifically to fevers. - Vital Signs Vital signs: Temp Pulse Resp BP Pulse Ox 97.9 F 78 16 141/85 H 97 11/04/18 16:34 11/04/18 16:34 11/04/18 16:34 11/04/18 16:34 11/04/18 16:34 - Laboratory Result Diagrams: 11/04/18 17:40 11/04/18 17:40 Laboratory results interpreted by me: 11/04/18 17:10 Urine Blood MODERATE H Doctor's Discharge - Discharge Clinical Impression: Nephrolithiasis, Flank pain Condition: Good Disposition: HOME, SELF-CARE Instructions: Oral Narcotic Medication ([facility]), Kidney Stone ([facility]) Additional Instructions: You were seen today in the emergency department for your left-sided pain. You had evaluation including a physical exam as well as a urine test and the blood test for your kidneys. Your urine test shows that you have blood in your kidney, your kidney function is normal today. Because your kidney function is normal you do have blood in your urine it is likely that you do have a kidney stone. Given medication to help treat your kidney stone, use the medication as directed and the pain medication only as needed. Make sure that she return in case you begin to have persistent fevers higher than 101 degrees. Schedule appointment with the urologist in the coming week if you have persistent pain greater than 6 days. Prescriptions: Hydrocodone/Acetaminophen [[place] 5-325 mg Tablet] 1 tab PO Q6H PRN 4 Days #20 tab PRN Reason: Ibuprofen [Motrin 400 mg Tablet] 400 mg PO QID PRN #30 tablet PRN Reason: Tamsulosin HCl [Flomax 0.4 mg Cap.sr] 0.4 mg PO DAILY #7 cap.sr.24h Referrals: MENDEZ HUTCHINSON MD [Primary Care Provider] - Follow up as needed
[2018-11-04 17:31] LABS: APPEARANCE,URINE CLEAR; BILIRUBIN,URINE NEGATIVE (NEGATIVE); COLOR,URINE STRAW; GLUCOSE, URINE NEGATIVE (NEGATIVE); KETONES,URINE NEGATIVE (NEGATIVE); LEUKOCYTE ESTERASE,URINE NEGATIVE (NEGATIVE); NITRITE,URINE NEGATIVE (NEGATIVE); PROTEIN,URINE NEGATIVE (NEGATIVE); URINE SPECIFIC GRAVITY 1.005; UROBILINOGEN,URINE NEGATIVE mg/dL (<2.0)
[2018-11-04 17:52] LABS: ABSOLUTE BASOPHILS # (AUTO) 0.1 10^3/uL (0.0-0.2); ABSOLUTE EOSINOPHILS # (AUTO) 0.4 10^3/uL (0.0-0.6); ABSOLUTE LYMPHOCYTES (AUTO) 2.6 10^3/uL (0.5-4.7); ABSOLUTE MONOCYTES (AUTO) 0.9 10^3/uL (0.1-1.4); ABSOLUTE NEUT (AUTO) 5.1 10^3/uL (1.7-8.2); BASOPHILS % (AUTO) 0.7 % (0-2); EOSINOPHILS % (AUTO) 4.3 % (0-6); HEMATOCRIT 42.2 % (36.0-47.0); HEMOGLOBIN 14.4 g/dL (12.0-15.5); LYMPHOCYTES % (AUTO) 29.2 % (13-45); MEAN CORPUSCULAR HEMOGLOBIN 29.9 pg (27.0-33.4); MEAN CORPUSCULAR HGB CONC 34.1 g/dL (32.0-36.0); MEAN CORPUSCULAR VOLUME 88 fl (80-97); MONOCYTES % (AUTO) 9.8 % (3-13); PLATELET COUNT 307 10^3/uL (150-450); RED BLOOD COUNT 4.82 10^6/uL (3.72-5.28); RED CELL DISTRIBUTION WIDTH 13.1 % (11.5-14.0); TOTAL CELLS COUNTED % (AUTO) 100 %
[2018-11-04 18:07] LABS: ANION GAP 7 (5-19); BLOOD UREA NITROGEN 16 mg/dL (7-20); CALCIUM 9.9 mg/dL (8.4-10.2); CARBON DIOXIDE 28 mmol/L (22-30); CHLORIDE 106 mmol/L (98-107); GLUCOSE 103 mg/dL (75-110); POTASSIUM 4.9 mmol/L (3.6-5.0); SODIUM 140.5 mmol/L (137-145)
[2018-11-04] MEDS ORDERED: HYDROCODONE/ACETAMINOPHEN 5-325 MG (6 TAB/ER DISP) PO PRN (18:26)
[2018-11-04 18:42] VITALS: BP 130/89
== END 2018-11-04 18:38 | disposition home or self-care (01) ==
LOC: ER 16:28
DX: N20.0 Calculus of kidney (principal); R10.9 Unspecified abdominal pain; Z88.3 Allergy status to other anti-infective agents; Z90.710 Acquired absence of both cervix and uterus
CPT/HCPCS: 99284; 96372; 36415; 85025; 80048; 81001; J1885; J3010